=== PATIENT | male | born 2000 | race Caucasian/White ===

== ENCOUNTER 2024-02-26 02:00 | Emergency (ER) | payer BC ==
[~2024-02-26] VITALS: Ht 180.3 cm; Wt 79.5 kg
[2024-02-26] MEDS ORDERED: Ibuprofen 400 MG TAB PO ONE (02:15)
[2024-02-26] MEDS ORDERED: Home HYDROcodone/Acetaminophen 5/325 MG #4 TABS/PACK PO ONE (02:45)
[2024-02-26 02:49] VITALS: BP 133/86; PULSE 73; TEMP 98.2
== END 2024-02-26 02:49 | disposition home or self-care (01) ==
LOC: COL.ER 02:00
DX: S62.001A Unspecified fracture of navicular [scaphoid] bone of right wrist, initial encounter for closed fracture (principal); X58.XXXA Exposure to other specified factors, initial encounter; Y93.67 Activity, basketball